=== PATIENT | male | born 1965 | race Caucasian/White ===

== ENCOUNTER 2019-08-04 02:58 | Day surgery (SDC) | payer OTHER, SELFPAY ==
[2019-07-31 08:44] VITALS: BMI 25.7
--- NOTE | 2019-08-04 07:15 | WPDHPUPDATE1 ---
History and Physical Update Update Date/Time: 08/04/19 07:15 History and Physical has been reviewed, including an updated exam of the patient. There are NO changes in the patient's condition. Risks, benefits, and alternatives have been discussed and questions answered. Patient agrees to proceed with procedure.
[2019-08-04] MEDS: LACTATED RINGERS 1,000 ML 30 ML IV CONT (10:02)
[2019-08-04 10:07] VITALS: BP 140/92; PULSE 84; RESP 20; TEMP 36.4; O2SAT 100
--- NOTE | 2019-08-04 10:32 | WPDANESEPPF ---
Anes - Initial Pre Proc Eval Procedure: Operation Date: 08/04/19 10:30 Proposed Procedures p Excision Of Cyst Left Foot - Fortunato Davalos JR, MD Date/Time: 08/04/19 10:32 Surgeon: Fortunato Davalos JR, MD Pre Op Diagnosis: Cyst Left Foot Patient Data Age: 53 Gender: M Height: 6 ft 1 in Weight: 90.75 kg Last Vital Signs Temp 36.4 C L 08/04/19 10:07 Pulse 84 08/04/19 10:07 Resp 20 08/04/19 10:07 BP 140/92 H 08/04/19 10:07 Pulse Ox 100 08/04/19 10:07 Allergies Allergy/AdvReac Type Severity Reaction Status Date / Time No Known Allergies Allergy Verified 08/04/19 10:05 Home Medications Medication Instructions Recorded Confirmed Type lisinopril 10 mg tablet 10 mg PO DAILY #90 tablet 06/12/19 08/04/19 Rx ascorbic acid (vitamin C) [Vitamin 1 g PO DAILY 07/31/19 08/04/19 History C] multivitamin 1 tablet PO DAILY 07/31/19 08/04/19 History Patient hx anesthesia problems: none Family hx anesthesia problems: none PMFSH Past Medical History Medical History Hypertension MAIRA (obstructive sleep apnea) Family History Family History Grandparent Family history of lung cancer Family history of malignant neoplasm of breast Father Family history of lymphoma Other Family history of malignant neoplasm of bone Social History Social History Smoking status: Never smoker Second hand tobacco smoke exposure: No Alcohol intake: never Anes - Eval Final PreProcedure Day of Procedure 08/04/19 10:32 Patient weight: normal Heart: regular rate and rhythm Lungs: clear to auscultation Airway: Mallampati scale class II Neurological: alert and oriented Last oral intake: >/= 8 hours ASA classification: II Emergent: no Anesthetic plan: proceed Anesthesia type and monitoring: general LMA and standard monitoring Informed Consent: The patient's anesthetic plan and its attendant risks and benefits were discussed with the patient/family/POA. Questions were solicited and answers provided to the satisfaction of the patient/family/POA.
[2019-08-04] MEDS: ceFAZolin 2 GM/D5W 50 ML 2 GM/50 ML BAG IVPB (10:36)
[2019-08-04] MEDS: LIDOCAINE HCL 2% LOCAL INJ 20 ML VIAL 10 ML INFILTRATE (10:55)
[2019-08-04] MEDS: KETOROLAC 30 MG/ML VIAL (*BKC) IV PUSH (10:59)
[2019-08-04 11:12] VITALS: BP 105/66; PULSE 90; RESP 12; TEMP 36.3; O2SAT 98
[2019-08-04 11:25] VITALS: PULSE 83; RESP 15; O2SAT 100
--- NOTE | 2019-08-04 11:38 | PM.OP ---
Procedure Note - Brief Procedure Note - Brief Date of procedure: 08/04/19 Pre-op diagnosis: Cyst Left Foot Post-op diagnosis: same Procedure performed: Excision of ganglion cyst left foot Anesthesia: MAC and local Surgeon: Fortunato Davalos JR, DPM Estimated blood loss (mL): 1 Complications: No immediate complications Condition: stable Disposition: same day
[2019-08-04 11:40] VITALS: BP 119/82; PULSE 84; RESP 16; O2SAT 99
[2019-08-04 11:46] VITALS: BP 130/78; PULSE 87; RESP 16
[2019-08-04 12:15] VITALS: BP 140/88; PULSE 77; RESP 16
--- NOTE | 2019-08-04 14:19 | OP_ITS ---
DATE OF PROCEDURE: 08/04/2019 PREOPERATIVE DIAGNOSIS: Painful soft tissue mass, left foot. POSTOPERATIVE DIAGNOSIS: Ganglion cyst, left foot. PROCEDURE: Excision of soft tissue mass, left foot. PATHOLOGY: Specimen sent for gross and histopathology. ANESTHESIA: MAC with local. HEMOSTASIS: Pneumatic ankle tourniquet at 250 mmHg. ESTIMATED BLOOD LOSS: Minimal. MATERIALS USED: 4-0 Vicryl and 4-0 Monocryl. INJECTABLES: 20 cc of a 1:1 mixture of 2% lidocaine plain and 0.5% Marcaine plain. COMPLICATIONS: None. PROCEDURE IN DETAIL: Under mild sedation, the patient was brought to the operating room, placed on the operating table in the supine position. Pneumatic ankle tourniquet was placed about the patient's left ankle. Following IV sedation, local anesthesia was obtained about the left foot utilizing 20 cc of a 1:1 mixture of 2% lidocaine plain and 0.5% Marcaine plain. The foot was then scrubbed, prepped, and draped in the usual aseptic manner. An Esmarch bandage was then used to exsanguinate the patient's left foot and the pneumatic ankle tourniquet was then inflated. Surgery began in the following manner: An incision was made overlying the center aspect of the subcutaneous palpable soft tissue mass along the medial forefoot. The incision was continued deep down through the subcutaneous tissues using sharp and blunt dissection. The incision started just proximal to the medial aspect of the 1st metatarsal head and extended proximally approximately 3 cm. The incision was continued deep down. All bleeders were cauterized as necessary. At this point, the large ganglion cyst was visualized and freed of all soft tissue attachments. At this point, the stalk of the ganglion cyst was noted to come from the adductor hallucis tendon. It was completely transected from the proximal aspect of the adductor hallucis and sent for gross and histopathology. The wound site was flushed with copious amounts of sterile saline. I did cauterize the base of the stalk of the ganglion cyst in order to prevent redevelopment. The subcutaneous structures were reapproximated and coapted utilizing 4-0 Vicryl. Next the skin was reapproximated and coapted utilizing 4-0 Monocryl in running subcuticular suture fashion technique. Upon completion of the procedure, the incision was dressed with [id number] Steri-Strips, Adaptic, 4x4s, Kerlix, and Coban. The pneumatic ankle tourniquet was then deflated and a prompt hyperemic response was noted to all digits of the left foot. Postop shoe was then applied. It is important to note that I, Dr. Davalos, was present throughout the procedure. The patient did very well with the procedure and the anesthesia. He was transferred to the recovery room with vital signs stable and vascular status intact to all toes of the left foot. Following a period of postoperative monitoring, the patient will be discharged home on the following written and oral postop instructions: 1. Keep the dressing clean, dry, and intact. 2. Avoid excessive ambulation. 3. Ice and elevate the left foot while at rest. 4. Wear surgical shoe at all times with ambulating. 5. Contact Dr. Davalos for all postop care and if any problems arise. Prescriptions were written for ibuprofen 800 mg to be taken 1 p.o. q.6 hours as needed for pain. Eddie I MT: Bharathi
== END 2019-08-04 12:40 | disposition home or self-care (01) ==
PROVIDERS: PCP Family Medicine; Visit Provider Podiatrist Foot & Ankle Surgery
PROC: (CPT 28090; principal; 2019-08-04 10:30)
DX: M67.472 Ganglion, left ankle and foot (principal); I10 Essential (primary) hypertension; G47.33 Obstructive sleep apnea (adult) (pediatric)
CPT/HCPCS: 28090; 88304; J0690; J1100; J1885; J2250; J2405; J2704; J3010; J7120